=== PATIENT | female | born 1975 | race Caucasian/White ===

== ENCOUNTER 2019-01-14 11:00 | Inpatient (IN) ==
[2019-01-14] MEDS ORDERED: ZOFRAN IV ONE ×2 (12:27→14:31)
[2019-01-14] MEDS ORDERED: LR 1,000 ML IV ONE (12:27)
[2019-01-14 12:43] LABS: BASO# 0.04 X1000 (0.0-0.2); BASO% 0.3 % (0.0-0.8); EOS# 0.12 X1000 (0.0-0.7); HEMATOCRIT 46.8 % (37.0-47.0); IMM GRAN# 0.12 X1000 (0.0-0.04); LYMPH# 2.28 X1000 (1.2-3.4); LYMPH% 19.9 % (20.5-51.1); MCH 29.3 PG (27-31); MCHC 34.2 g/dL (33-37); MCV 85.7 FL (81-99); MONO# 0.78 X1000 (0.11-0.59); MONO% 6.8 % (1.7-9.3); MPV 9.4 FL (7.4-10.4); PLT 413 X1000 (130-400); RBC 5.46 XMIL (4.2-5.4); RDW 13.7 % (11.5-14.5); WBC 11.44 X1000 (4.8-10.8)
[2019-01-14 12:45] LABS: URINE SOURCE CLEAN CATCH
[2019-01-14 12:50] LABS: BILIRUBIN URINE NEGATIVE (NEGATIVE); BLOOD URINE TRACE (NEGATIVE); COLOR YELLOW; GLUCOSE URINE NEGATIVE (NEGATIVE); KETONE URINE NEGATIVE (NEGATIVE); LEUKOCYTES URINE MODERATE (NEGATIVE); NITRITE URINE NEGATIVE (NEGATIVE); PROTEIN URINE 100 mg/dL (NEGATIVE); SP GRAVITY URINE 1.019; TURBIDITY URINE HAZY (CLEAR); UROBILINOGEN URINE NORMAL (NORMAL)
[2019-01-14 12:55] LABS: UR EPITHELIAL CELLS >10 /HPF (<10); URINE BACTERIA NEGATIVE /HPF; URINE RBC <10 /HPF (<10); URINE WBC 20-40 /HPF (<10)
[2019-01-14 12:56] LABS: ACETONE SERUM NEGATIVE (NEGATIVE)
[2019-01-14 13:05] LABS: URINE YEAST PRESENT
[2019-01-14 13:11] LABS: ESTIMATED GFR 10
[2019-01-14 13:23] LABS: AGAP 20; ALB/GLOB RATIO 1.4; ALBUMIN 4.1 g/dL (3.5-5.0); ALKALINE PHOSPHATASE 67 U/L (32-104); BUN 67 mg/dL (8-22); CALCIUM 8.8 mg/dL (8.8-10.2); CHLORIDE 96 mmol/L (98-107); COSMO 278; CREATININE 4.8 mg/dL (0.5-0.9); GLUCOSE 95 mg/dL (70-104); GOT 18 U/L (10-30); GPT 15 U/L (10-36); POTASSIUM 4.1 mmol/L (3.5-5.1); SODIUM 129 mmol/L (136-145); TCO2 13 mmol/L (25-35); TOTAL BILIRUBIN 0.32 mg/dL (0.20-1.00); TOTAL PROTEIN 7.1 g/dL (6.3-8.3)
[2019-01-14] MEDS ORDERED: NS 1,000 ML IV ONE ×2 (14:31→15:47)
[2019-01-14] MEDS ORDERED: LEVAQUIN 750 MG/D5W 750 MG/150 ML IVPB IV ONE (14:31)
--- NOTE | 2019-01-14 14:33 | PROVIDER DOCUMENTATION ---
This chart was entered by Orquidea Lindsey Scribe, acting as scribe for Bean Rojas MD. HPI-General Adult - General Chief Complaint: Nausea/Vomiting Stated Complaint: DR DAS REFERRED Time Seen by Provider: 01/14/19 12:20 Source: patient Allergies/Adverse Reactions: Patient Allergies Allergy/AdvReac Type Severity Reaction Status Date / Time Penicillins Allergy Unknown Verified 01/14/19 13:14 - History of Present Illness -Gen Adult Nature of Presenting Problems: Patient is a 43 year old female who presents with nausea and vomiting. States symptoms have been present for 1 week. Reports she was seen in the ER 2 weeks ago and was diagnosed with an UTI and dehydration. States she was placed on Cefdinir. Location of Pain/Injury: reports: none Quality of Pain: reports: none Severity: reports: moderate Onset/Duration: reports: 1 week ago Timing: reports: still present Context/Activities at Onset: reports: light activity Associated Symptoms: reports: nausea, vomiting Similar Symptoms Previously?: Yes Recently seen or treated by another doctor?: Yes Review of Systems - Adult - REVIEW OF SYSTEMS - ADULT Constitutional: reports: no symptoms reported. denies: chills, fever, fatique Eyes: reports: no symptoms reported Ears, Nose, Mouth & Throat: reports: no symptoms reported Cardiovascular: reports: no symptoms reported Respiratory: reports: no symptoms reported Gastrointestinal: reports: see HPI, nausea, vomiting. denies: abdominal pain, diarrhea Genitourinary: reports: no symptoms reported Musculoskeletal: reports: muscle weakness. denies: back pain, muscle aches Integumentary: reports: no symptoms reported Neurological: reports: no symptoms reported Psychiatric: reports: no symptoms reported Endocrine: reports: no symptoms reported Hematologic/Lymphatic: reports: no symptoms reported Allergic/Immunologic: reports: no symptoms reported All Other Systems: Reviewed and Negative Past History - Adult - PAST MEDICAL HISTORY-ADULT Review of Records: reports: Old Records Reviewed, Social history reviewed & non- contributory. Major Childhood Illnesses: reports: denies history Cardiovascular: reports: denies history Respiratory: reports: denies history Gastrointestinal: reports: denies history Obstetrical/Gynecological: reports: denies history Genitourinary: reports: kidney disease Musculoskeletal: reports: denies history Neurological: reports: denies history Psychiatric: reports: denies history Endocrine/Immune: reports: thyroid disorder Other Conditions: reports: denies history - PRIOR SURGERIES/PROCEDURES Surgical/Procedure History: reports: reviewed, not pertinent, BTL - IMMUNIZATION STATUS Childhood Immunizations: See Nurse Assessment Flu Vaccine: See Nurse Assessment - FAMILY HISTORY Family History: reviewed, not pertinent - SOCIAL HISTORY Smoking: denies Substance Use: denies Living Situation: family Physical Exam-General - PHYSICAL EXAM-ADULT Initial Vital Signs Reviewed: Yes - CONSTITUTIONAL General Appearance: alert, no apparent distress. negative: lethargic - HEAD, EARS, NOSE, MOUTH & THROAT HENMT: normocephalic/atraumatic, other (dry mucous membranes). negative: angioedema - RESPIRATORY Respiratory: chest non-tender, lungs clear, normal breath sounds. negative: crackles, rhonchi - CARDIOVASCULAR Cardiovascular: normal peripheral pulses, regular rate, rhythm. negative: tachycardia - GASTROINTESTINAL (ABDOMEN) Abdominal Exam: normal bowel sounds, non tender, soft. negative: guarding, rebound - MUSCULOSKELETAL Extremity: non-tender, normal inspection. negative: deformity, swelling - SKIN Integumentary: normal color, normal turgor, warm/dry. negative: diaphoresis, ecchymosis, rash - NEUROLOGIC Neurologic: grossly normal. negative: aphasia, facial droop - PSYCHIATRIC Psych/Mental Status: normal mood/affect, oriented x 3. negative: paranoid, tearful Progress - PLAN OF CARE/RESULTS Progress/Plan/Lab Results: Vital Signs - 8 hr 01/14/19 11:20 Temperature 98.0 F Pulse Rate 106 H Respiratory Rate 19 Blood Pressure 76/54 O2 Sat by Pulse Oximetry 97 Result Diagrams: 01/14/19 12:10 01/14/19 12:10 - CONSULTS/PCP/HOSPITALIST Notification #1 *Consult/PCP/Hospitalist*: KARLI Vega for Hospitalist Time Discussed: 14:24 (Dr. Hutchinson accepted admit) Reason/Comments: Dr. Rojas consulted with Silvia about patient Consult Disposition: Will see in ED, Admit Departure - Departure Date of Disposition Decision: 01/14/19 Time of Disposition Decision: 14:24 DIAGNOSIS: UTI (urinary tract infection), Renal insufficiency Disposition: ADMITTED INPATIENT Certified Medical Emergency: Emergent Condition: Fair Referrals and Follow-Ups: None,PCP [Primary Care Provider] - - Critical Care Note This patient required my direct & personal management of CC.: No Attestation - Physician/ JUANCARLOS Attestation The physician spent face to face time with patient:: Yes Advanced Practice Provider documentation review:: Supervising physician onsite and consulted in the evaluation and care of this patient. The physician did have a face to face encounter with the patient. This chart was documented by the indicated scribe, (Orquidea Lindsey Scribe) and accurately reflects the services I performed and decisions made by me, Bean Rojas MD, as attested by the provider's signature.
[2019-01-14] MEDS ORDERED: ZOFRAN IV PRN (15:47)
--- NOTE | 2019-01-14 18:22 | HISTORY AND PHYSICAL ---
PRIMARY CARE PROVIDER: KARLI Hoffman C[place]. SPONGE CLIPPER: Dr. Gonzalez. UROLOGIST: Dr. Small. GI DOCTOR: Dr. Bailey. CHIEF COMPLAINT: Nausea, vomiting, dehydration. HISTORY OF PRESENT ILLNESS: Ms. Valencia is a 43-year-old female who carries a past medical history of chronic kidney disease, unknown baseline or staging, hypothyroidism, GERD, chronic nausea and vomiting ongoing for years. The patient reports that she has been to see multiple doctors and they have yet to find out what is causing her chronic nausea and vomiting. She reports on Monday she went to the [facility], got dehydrated at the, and became disoriented. She came back home around lunchtime on Monday and had been sleeping there until this morning. She did report that her nausea and vomiting had increased over the last 2 weeks. She felt weak and dehydrated. She went to see Dr. Gonzalez's DIRECTOR PROCESS today who felt that she was dehydrated with a further kidney injury. Workup in the ED revealed acute renal failure with a BUN of 67 and a creatinine of 4.8. Again, we do not have her baseline. Their last number that they could remember was 2.4 at an unknown time. She was recently being treated for a UTI from her urologist back on the or with cefdinir. She was given 2 L of fluid in the ED. She was initially hypotensive and tachycardic. She is now normotensive. Heart rate is in the 90s. We will admit her to P[facility] and continue with aggressive IV hydration with a consult for Dr. Gonzalez for further treatment and evaluation. PAST MEDICAL HISTORY: 1. Chronic nausea and vomiting ongoing for years with dehydration. 2. Gastroesophageal reflux disease. 3. Hypothyroidism. 4. Kidney stones. PAST SURGICAL HISTORY: Tubal ligation. SOCIAL HISTORY: She is . She has children. 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 No alcohol, tobacco, or illicit drug use. HOME MEDICATIONS: Have not been verified but patient's written list, Zofran, potassium, Protonix, levothyroxine, bupropion, tramadol, Linzess. ALLERGIES: Penicillin, unknown reaction. She states she has had this since a child and she does not remember the reaction. PHYSICAL EXAMINATION: VITAL SIGNS: Temperature is 98 degrees, heart rate in the 90s, blood pressure in the 90s, O2 saturation 97% on room air. GENERAL: Ms. Valencia is a 43-year-old female who is sitting up in the bed, in no acute distress. HEENT: Atraumatic, normocephalic. PERRL. NECK: Supple. Trachea midline. CARDIOVASCULAR: S1, S2 appreciated. No murmurs, gallops, rubs noted. RESPIRATORY: Lung sounds clear bilaterally. GI: Soft, nontender, nondistended. Positive bowel sounds 4 quadrants. EXTREMITIES: Lower extremities are negative for edema. NEUROLOGIC: No focal deficits noted. DIAGNOSTIC DATA: None. LABORATORY DATA: White count 11, hemoglobin and hematocrit 16 and 46, platelet count is 413,000. Sodium 129, potassium 4.1, chloride 96, carbon dioxide 13, BUN 67, creatinine 4.8, blood glucose is 95. Urinalysis shows moderate leukocytes, 20 to 40 WBCs, trace blood, 100 protein. Acetone level negative. ASSESSMENT AND PLAN: 1. Acute kidney injury on chronic kidney disease. We will continue with aggressive IV hydration. Consult Dr. Gonzalez. Check urine studies, renal profile in the a.m. We will recheck her kidney function in the a.m. We will continue with aggressive IV diuresis overnight. 2. Chronic nausea and vomiting with reported increase over the past 2 weeks. We will continue with IV Zofran and IV fluids. The patient's last vomitus was Monday morning in the early hours. She was able to tolerate [place] this a.m. 3. Dehydration. We will continue with aggressive IV fluids. 4. Mild hyponatremia, recent diagnosis of urinary tract infection. We will continue renally- dosed IV antibiotics. 5. Hypothyroidism. 6. Gastroesophageal reflux disease. 7. Metabolic acidosis secondary to kidney disease. We will continue with IV fluids. 8. Further recommendation to follow physician evaluation, laboratory and diagnostic data. Dictated by KARLI Anders for Randy Graff MD cc: MD Johanna Wilkes CRNP Charles Bluhm agree with the above. the following is my own face to face assessment. patient with chronic nausea and vomiting worse over the last week. sent from the office for worsening kidney function although baseline is not clearly established. heart: RRR. lungs clear. will hydrate aggressively and monitor response. MTDD
[2019-01-15] MEDS ORDERED: ULTRAM PO PRN (03:44)
[2019-01-15] MEDS: ULTRAM PO PRN ×3 (03:55→18:31)
[2019-01-15] MEDS: SYNTHROID PO SCH ×2 (05:17→06:04)
[2019-01-15 07:16] LABS: ALBUMIN 3.1 g/dL (3.5-5.0); CALCIUM 7.7 mg/dL (8.8-10.2); CREATININE 2.8 mg/dL (0.5-0.9); PHOSPHORUS 4.6 mg/dL (2.7-4.5); POTASSIUM 3.1 mmol/L (3.5-5.1)
[2019-01-15 07:22] LABS: BASO# 0.03 X1000 (0.0-0.2); BASO% 0.4 % (0.0-0.8); EOS# 0.12 X1000 (0.0-0.7); EOS% 1.5 % (0.0-10.0); HEMATOCRIT 38.6 % (37.0-47.0); HEMOGLOBIN 13.2 g/dL (12.0-16.0); IMM GRAN% 1.3 % (0.0-0.5); LYMPH# 2.01 X1000 (1.2-3.4); LYMPH% 25.4 % (20.5-51.1); MCH 29.5 PG (27-31); MCHC 34.2 g/dL (33-37); MCV 86.4 FL (81-99); MONO# 0.64 X1000 (0.11-0.59); MONO% 8.1 % (1.7-9.3); MPV 9.6 FL (7.4-10.4); NEUT% 63.3 % (42.2-75.2); PLT 314 X1000 (130-400); RBC 4.47 XMIL (4.2-5.4); RDW 13.5 % (11.5-14.5)
[2019-01-15] MEDS ORDERED: ULTRAM PO SCH (09:00)
[2019-01-15 09:53] LABS: URINE SOURCE CLEAN CATCH
[2019-01-15 10:01] LABS: BILIRUBIN URINE NEGATIVE (NEGATIVE); BLOOD URINE NEGATIVE (NEGATIVE); COLOR YELLOW; GLUCOSE URINE NEGATIVE (NEGATIVE); KETONE URINE NEGATIVE (NEGATIVE); LEUKOCYTES URINE SMALL (NEGATIVE); NITRITE URINE NEGATIVE (NEGATIVE); PROTEIN URINE 30 mg/dL (NEGATIVE); SP GRAVITY URINE 1.013; TURBIDITY URINE CLEAR (CLEAR); UROBILINOGEN URINE NORMAL (NORMAL)
[2019-01-15 10:02] LABS: UR EPITHELIAL CELLS <10 /HPF (<10); URINE BACTERIA NEGATIVE /HPF; URINE RBC <10 /HPF (<10)
[2019-01-15] MEDS: PROTONIX PO SCH (11:23)
[2019-01-15] MEDS ORDERED: KLOR-CON PO ONE (11:24)
[2019-01-15 12:34] LABS: UR CREAT RANDOM 96.2 mg/dL (11-20); UR PROT RANDOM 22.7 mg/dL; UR SODIUM < 10 mmoll
--- NOTE | 2019-01-15 13:18 | PROGRESS NOTE ---
DATE: 01/15/2019 SUBJECTIVE: This patient is feeling much better today. She is no longer having nausea or vomiting. She does not look dehydrated IV fluids has been stopped. She is tolerating her diet now. Nephrology Department already evaluated this patient. We will continue to monitor. OBJECTIVE: Vital Signs: Temperature 97.6 degrees, pulse 89, respiratory rate 18, blood pressure 84/53, oxygen saturation 99 on room air. HEENT: Head normocephalic, no trauma. PERRLA. Neck: Supple. No JVD. No masses. Central trachea. Chest: Clear to auscultation. No wheezing. No rales. Abdomen: Soft, nontender, nondistended. No hepatosplenomegaly. Extremities: No edema, no clubbing, no cyanosis. Neurological examination: The patient is alert. She is oriented x3. No focal deficits. LABORATORY: WBC 7.9, hemoglobin 13.2, hematocrit 38.6, platelets 314. Sodium 131, potassium 3.1, chloride 102, bicarbonate 12. BUN 54, creatinine 2.8, glucose 83, calcium 7.7, phosphorus 4.6. ASSESSMENT AND PLAN: 1. Acute kidney injury on chronic kidney disease. I do not have a baseline at this moment, but she seems to be doing much better. She is tolerating oral. Nephrology Department is following this patient closely. We will continue with same management for now. 2. Chronic nausea and vomiting with reported increase over the past 2 weeks. This is better today. Continue with nausea medication. We will monitor this patient closely. She is tolerating regular diet. 3. Dehydration, resolved. 4. Mild hyponatremia, resolved. Likely due to dehydration. 5. Hypokalemia. I will monitor for now. She has been taking 20 mEq of potassium every 4 hours at home. I will replace it today and I will ask Nephrology Department if we need to continue with that amount of potassium. 6. Hypothyroidism. Continue with Synthroid. 7. Gastroesophageal reflux disease. Continue with proton pump inhibitors. 8. Borderline low blood pressure. As per the patient, this is normal for her. Her regular blood pressure is in the 80s and 90s. We will continue to monitor. cc: Ricardo Ponce MD
[2019-01-15] MEDS ORDERED: NS 500 ML IV SCH (15:00)
[2019-01-15] MEDS ORDERED: LEVAQUIN 250 MG/D5W 250 MG/50 ML IVPB IV SCH (15:30)
[2019-01-15] MEDS: SODIUM BICARBONATE PO SCH (20:55)
--- NOTE | 2019-01-15 21:18 | NEPHROLOGY CONSULTATION ---
DATE: 01/15/2019 REASON FOR ADMISSION: Nausea, vomiting with dehydration. REASON FOR CONSULT: Acute kidney injury with assistance with medical management. CONSULTING PHYSICIAN: Randy Graff MD per Edelmira Matthews NP. HISTORY OF PRESENT ILLNESS: Ms. Valencia is a 43-year-old white female who is known to our outpatient services for CKD stage 2/3. The patient has not been seen in our service in over a year. Previously, she was hospitalized in June 2017 for acute kidney injury secondary to urinary obstruction with UTI. The patient had an elevated creatinine, in followup in our clinic in [place] her creatinine in August returned to 1.1. The patient states that she has a longstanding history of nephrolithiasis with chronic urinary tract infections, followed by Dr. Small from [place]. She has noted that the majority of her renal stones are uric acid with some calcium. She stated that on 12/26/2018, she was hospitalized for a urinary tract infection. Her labs at that time had gone from a creatinine of 1.8 to 2.1 and then last completed in the hospital of 2.4. These were the labs that were presented to our office when patient was seen yesterday. The patient states that since 12/26 at the time that those labs were drawn, she has had nausea, vomiting, diarrhea, dizziness, forgetfulness, occasional fever. No chills. No diarrhea. No hematochezia, hematuria. She also stated that at that time she was placed on Cefdinir and has been on that for 10 days. In the office, it was noted that she was lightheaded. Her blood pressure systolic was in the 90s. She was very weak. Her had to drive her to her appointment. She had poor skin turgor. Her mouth was dry. We did not have any labs for approximately 2 weeks. I had encouraged her to go to [facility] Emergency Department to be evaluated. Upon arrival in the emergency room, it was found that her BUN was 67 with a creatinine of 4.8. Her preveious baseline was 1.1 a year ago and 2.1 approximately 1 month ago. The patient was treated with a 2 L fluid boluses. She was given 1 L of normal saline at 125 little mL an hour, which is currently heparin locked after her 3rd L dose. She was hypotensive and tachycardic in the ER, but after her fluid volume boluses, she was normotensive. Heart rate remained in the 80s to 90s, occasional PVCs. The patient was admitted further for monitoring and evaluation. At the time she was being seen, she states that she does have routine dry eyes, routine dry mouth. She has a low-potassium history, chronic urinary tract infections. She states that she does have rheumatoid arthritis, but has recently been taken off of her Celebrex for her RA because of her elevated BUN and creatinine. PAST MEDICAL HISTORY: Chronic kidney disease stage 2/3, chronic nausea and vomiting that comes and goes related to dehydration associated with nephrolithiasis, gastroesophageal reflux, hypothyroidism, and again nephrolithiasis. PAST SURGICAL HISTORY: Tubal ligation. She has also had an EGD. SOCIAL HISTORY: She is . She has children. 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 No alcohol, tobacco, or illicit drug use. FAMILY HISTORY: It is noted that her sister is positive for Sjogren's disease. Otherwise, no kidney injuries. ALLERGIES: Listed as penicillins. HOME MEDICATIONS: Have been Zofran, potassium, Protonix levothyroxine, tramadol, and Linzess along with bupropion. REVIEW OF SYSTEMS: Times 10 with pertinent positives listed above in the HPI. VITAL SIGNS: Temperature 98.3 degrees, blood pressure 83/61, heart rate 87, respirations 20. She is on room air. Last recorded saturation is 99%. She has had 1240 in. She has had 400 out. Her 3 L have not been recorded with this intake. LABORATORY DATA: Sodium is 136, potassium 3.1, chloride 107, CO2 of 12, BUN 54, creatinine 2.8, glucose 83. Her anion gap is 17, calcium 7.7, phosphorus is 4.6 with an albumin of 3.1. White count 7.9, hemoglobin 13.2, hematocrit 38.6, with a platelet count of 314,000. The patient has urine electrolytes indicating a FENa score of 0.19%, may possibly require another L of IV fluids. PHYSICAL EXAMINATION: General: This is a 43-year-old female. She appears in no acute distress though chronically ill. Skin: Warm and dry. HEENT: Normocephalic, atraumatic. Conjunctiva is pale. She has CALEB. Mucous membranes are dry. Neck: Supple. Trachea midline. No evidence of JVD in the upright position. Cardiovascular: Regular rate and rhythm. No murmur or gallop appreciated. Lungs: Clear to auscultation bilaterally. Equal excursion. She is on room air. Abdomen: Soft, nontender. Positive bowel sounds. Genitourinary: Not inspected. The patient has adequate urine output documented. Encouraged to keep strict I's and O's. Integumentary: No edema. No clubbing or cyanosis. Neurological: She is alert and oriented x3. ASSESSMENT AND PLAN: 1. Acute kidney injury on chronic kidney disease. This appears to be volume depletion. She has a FENa score of 0.19% after 3 L of fluid volume resuscitation. We will add 1 more 500mL of normal saline to be given 1 time today. We will re-evaluate labs in the a.m. BUN and creatinine have responded nicely to her fluid resuscitation. BUN of 54 with a creatinine down to 2.8. 2. Chronic nausea and vomiting. The patient has been on oral antibiotic. She has been given Zofran with IV fluids for treatment. This appears to be stable. 3. Electrolytes and acid-base balance. Patient has a low potassium of 3.1. This was treated this a.m. with 20 mEq x1. 4. Acid-base balance. Patient has a bicarbonate of 12. Her anion gap is 17. We will add sodium bicarbonate to her oral regimen. 5. Anemia. This is in target. 6. Fluid volume depletion with hypotension. We will add 1 more L over the next 8 hours and then re-evaluate labs in the a.m. PLAN: We will order urine electrolytes, uric acid, urine sodium, urine potassium, urine chloride. We will order an JAMES to rule out Sjogren's syndrome. I would to thank you for allowing us to follow with this patient. Dictated by KARLI Katz for Pawan Gonzalez MD Face to face encounter, data reviewed, discussed with Netta Keene on01/15/19. I agree with the above assessment and plan of care. cc: KARLI Katz MD [facility]
[2019-01-16] MEDS: SYNTHROID PO SCH (06:02)
[2019-01-16 06:45] LABS: BASO# 0.03 X1000 (0.0-0.2); BASO% 0.5 % (0.0-0.8); EOS# 0.14 X1000 (0.0-0.7); EOS% 2.3 % (0.0-10.0); HEMATOCRIT 37.4 % (37.0-47.0); HEMOGLOBIN 12.6 g/dL (12.0-16.0); IMM GRAN# 0.09 X1000 (0.0-0.04); IMM GRAN% 1.5 % (0.0-0.5); LYMPH# 2.48 X1000 (1.2-3.4); LYMPH% 40.7 % (20.5-51.1); MCH 29.6 PG (27-31); MCHC 33.7 g/dL (33-37); MONO# 0.53 X1000 (0.11-0.59); MONO% 8.7 % (1.7-9.3); MPV 9.5 FL (7.4-10.4); NEUT# 2.83 X1000 (1.4-6.5); NEUT% 46.3 % (42.2-75.2); PLT 339 X1000 (130-400); RBC 4.25 XMIL (4.2-5.4); RDW 13.8 % (11.5-14.5)
[2019-01-16] MEDS ORDERED: LINZESS PO SCH (07:00)
[2019-01-16 07:16] LABS: ALBUMIN 3.1 g/dL (3.5-5.0); CALCIUM 7.8 mg/dL (8.8-10.2); CREATININE 2.5 mg/dL (0.5-0.9); PHOSPHORUS 3.7 mg/dL (2.7-4.5); POTASSIUM 3.1 mmol/L (3.5-5.1)
[2019-01-16] MEDS ORDERED: KLOR-CON PO ONE (07:24)
[2019-01-16 07:40] VITALS: BP 79/54
[2019-01-16] MEDS: PROTONIX PO SCH (07:43)
[2019-01-16] MEDS: SODIUM BICARBONATE PO SCH (07:43)
[2019-01-16] MEDS: ULTRAM PO PRN (07:57)
[2019-01-16] MEDS ORDERED: ZYLOPRIM PO SCH (09:00)
[2019-01-16] MEDS ORDERED: WELLBUTRIN SR PO SCH (09:00)
--- NOTE | 2019-01-16 11:45 | NEPHROLOGY PROGRESS NOTE ---
DATE: 01/16/2019 TIME SEEN: 0655. SUBJECTIVE: Ms. Valencia is resting quietly in bed. States that she is feeling much better. States that she is eating and drinking well. Diminished nausea. LABORATORY DATA: Sodium 139, potassium 3.1, chloride 110, CO2 of 16, BUN 43, creatinine 2.5, glucose 84, her anion gap is 13, calcium 7.8, phosphorus 3.7, albumin 3.1, previous magnesium of 1.7. Her white count is 6.1, hemoglobin 12.6, hematocrit 37.1, with a platelet count of 339,000. OBJECTIVE: Most Recent Vital Signs: Temperature 97.9 degrees, blood pressure 77/50, heart rate 87, respirations 20. She is on room air. Last recorded saturation 99%. She has had 1540 in, 350 out plus void. General: This is a 43-year-old white female, resting quietly in bed. She appears chronically ill, though in no acute distress. Skin: Warm and dry. HEENT: Normocephalic, atraumatic. Conjunctiva is pale. She has CALEB. Mucous membranes are dry. Neck: Supple. Trachea midline. No evidence of JVD. Cardiovascular: She is regular rate and rhythm. No murmur or gallop appreciated. Lungs: Clear to auscultation bilaterally. Equal excursion on room air. Abdomen: Soft, nontender. Positive bowel sounds. Genitourinary: Not inspected. The patient states that she has walked to the bathroom without difficulty multiple times. Encouraged to keep strict I's and O's. Integumentary: No edema. No clubbing or cyanosis. Neurological: Alert and oriented x3. ASSESSMENT: 1. Acute kidney injury on chronic kidney disease. The patient's BUN and creatinine has been improving slowly. Her creatinine was 2.8 yesterday, now down to 2.5 with a BUN of 43. Adequate urine output documented. 2. Electrolytes. Potassium this morning is 3.1, with a sodium of 139. Chronic hypokalemia. She has potassium ordered per her routine. 3. Acid-base balance. We had started the patient on sodium bicarbonate yesterday for a CO2 of 12, now up to 16. Eventually we would like to change this to potassium citrate, but we request that she go home on her sodium bicarbonate at this time. 4. Anemia. This is stable, in target. 5. Fluid volume depletion associated with hypotension. Blood pressure remains low, though she states that her normal pressure is at high 80s/low 90s. She is encouraged to increase her oral intake. 6. Uric acid level of 8.1. We had indicated that we will start her on allopurinol 100 mg by mouth daily per renal dosing. PLAN: We have indicated that the patient is to follow up in our office within 3 weeks after discharge with Dr. Caebllo on 02/14/2019. We have requested that she collect a 24-hour urine collection. We requested that they come by the office and potato picker the urine collection jug, which is a specialty container, this is slighlty different than her last 24-hour urine container she has collected. The patient states that she understands and will stop by our office and pick this up on discharge. We have labs that are currently pending, especially the JAMES, attempting to rule out Sjogren's syndrome. We will follow up with this once this is reported to our office. I would like to thank you for allowing us to follow with this patient. Dictated by KARLI Katz for Pawan Gonzalez MD Face to face encounter, data reviewed, discussed with Netta Keene on 01/16/19. I agree with the above assessment and plan of care. cc: KARLI Katz MD [facility]
--- NOTE | 2019-01-17 09:32 | DISCHARGE SUMMARY ---
ADMISSION DATE: 01/14/2019 DISCHARGE DATE: 01/16/2019 DIAGNOSES: 1. Acute kidney injury on chronic kidney disease. 2. RTA. 3. Chronic nausea and vomiting. 4. Dehydration, resolved. 5. Mild hyponatremia, resolved. 6. Hypokalemia resolved. 7. Hypothyroid. 8. Gastroesophageal reflux disease. 9. Fluid volume depletion with hypotension. CONSULTANTS: Dr. Pawan Gonzalez, Nephrology. HOSPITAL COURSE: Ms. Segovia presented to the emergency room with nausea, vomiting, and dehydration. She carries a chronic diagnosis of nausea and vomiting. She was evaluated at Dr. Gonzalez office and subsequently she was sent to the emergency room for further evaluation. She was found to be dehydrated with hypotension being hyponatremic and hypokalemic. Electrolytes were replaced. She initially had a creatinine of 4.8. After rehydration, her creatinine was down to 2.8. She tolerated a renal diet denying any further nausea or vomiting. Thankfully, she is ready for discharge. DISCHARGE VITAL SIGNS: Blood pressure is 86/64 with a heart rate of 76, respirations are 18, temperature is 98.3 degrees with room air saturations 99 to 100. DISCHARGE PHYSICAL EXAMINATION: Cardiovascular: Regular rate and rhythm. S1 and S2 appreciated. She has no lower extremity edema. Calves are nontender bilateral with peripheral pulses palpable x4 extremities. Pulmonary: Breath sounds are clear with no increased work of breathing noted. Gastrointestinal: Abdomen is soft, nontender, and nondistended. Bowel sounds in all 4 quadrants Neurologic: She is alert and oriented x3. DISCHARGE MEDICATIONS: 1. Ultram 50 mg p.o. t.i.d. 2. Sodium bicarb 1300 mg b.i.d. 3. Klor-Con 20. 4. Protonix 40 mg p.o. daily. 5. Linzess 290 mcg daily. 6. Levothyroxine 25 mcg daily. 7. Bupropion XL 150 every morning. 8. Allopurinol 100 mg daily. FOLLOW UP: 1. Dr. Pawan Gonzalez 02/14/2019 at 11:00 in the morning. 2. She has been instructed to call to be seen sooner or return to the emergency room for any syncope, dizziness, chest pain, palpitations, shortness of breath, temperature greater than 101, recurring nausea, vomiting, diarrhea, constipation, black or bloody vomitus or stools, hematuria, dysuria, frequency, urgency or for any questions or concerns she may have. 3. She is being discharged home in stable condition with family members. TIME SPENT: This is a greater than 30 minute discharge. Dictated by KARLI Gutierrez for Ricardo Ponce MD cc: KARLI Gutierrez MD [facility]
== END 2019-01-16 08:53 | disposition home or self-care (01) | DRG 683 ==
LOC: ED 11:00 → EDIPHOLD 11:01 → SUATTDRO 11:01 → 2N 16:29
PROVIDERS: ATTEND Internal Medicine